=== PATIENT | female | born 1950 | race Caucasian/White ===

== ENCOUNTER → 2023-05-20 10:58 | Outpatient (REF) | payer MEDICARE, OTHER, SELFPAY | LOC: HWRAD 10:58 | PROVIDERS: ATTENDING PHYSICIAN Internal Medicine | DX: M81.0 Age-related osteoporosis without current pathological fracture (principal) | CPT/HCPCS: 77080 ==

== ENCOUNTER → 2023-07-19 11:32 | Outpatient (REF) | payer MEDICARE, OTHER, SELFPAY | LOC: HWRAD 11:32 | PROVIDERS: ATTENDING PHYSICIAN Radiology Radiation Oncology; FAMILY PHYSICIAN Internal Medicine | DX: C34.31 Malignant neoplasm of lower lobe, right bronchus or lung (principal) | CPT/HCPCS: 71250 ==

== ENCOUNTER → 2024-01-03 09:00 | Outpatient (REF) | payer MEDICARE, OTHER, SELFPAY | LOC: HWWDC 09:00 | PROVIDERS: ATTENDING PHYSICIAN Internal Medicine | DX: Z12.39 Encounter for other screening for malignant neoplasm of breast (principal) | CPT/HCPCS: 77063; 77067 ==

== ENCOUNTER → 2024-01-31 10:29 | Outpatient (REF) | payer MEDICARE, OTHER, SELFPAY | LOC: HWRAD 10:29 | PROVIDERS: ATTENDING PHYSICIAN Radiology Radiation Oncology; FAMILY PHYSICIAN Internal Medicine | DX: C34.11 Malignant neoplasm of upper lobe, right bronchus or lung (principal); C34.31 Malignant neoplasm of lower lobe, right bronchus or lung | CPT/HCPCS: 71250 ==

== ENCOUNTER → 2024-05-17 09:27 | Outpatient (REF) | payer MEDICARE, OTHER, SELFPAY | LOC: HWRAD 09:27 | PROVIDERS: ATTENDING PHYSICIAN Internal Medicine | DX: M89.8X1 Other specified disorders of bone, shoulder (principal); R07.89 Other chest pain; M54.9 Dorsalgia, unspecified; R68.89 Other general symptoms and signs; M79.672 Pain in left foot; Z85.118 Personal history of other malignant neoplasm of bronchus and lung | CPT/HCPCS: 71101; 72050; 72072; 73010 ==

== ENCOUNTER → 2024-06-25 09:46 | Outpatient (REF) | payer MEDICARE, OTHER, SELFPAY | LOC: MRI 3T 09:46 | PROVIDERS: ATTENDING PHYSICIAN Internal Medicine | DX: M25.511 Pain in right shoulder (principal) | CPT/HCPCS: 73221 ==

== ENCOUNTER → 2024-07-05 09:11 | Outpatient (REF) | payer MEDICARE, OTHER, SELFPAY | LOC: RAD 09:11 | PROVIDERS: ATTENDING PHYSICIAN Internal Medicine; FAMILY PHYSICIAN Radiology Radiation Oncology | DX: S22.31XA Fracture of one rib, right side, initial encounter for closed fracture (principal); Z85.118 Personal history of other malignant neoplasm of bronchus and lung | CPT/HCPCS: 78306; A9503 ==

== ENCOUNTER → 2024-07-24 10:59 | Outpatient (REF) | payer MEDICARE, OTHER, SELFPAY | LOC: HWRAD 10:59 | PROVIDERS: ATTENDING PHYSICIAN Radiology Radiation Oncology; FAMILY PHYSICIAN Internal Medicine; REFERRING PHYSICIAN Orthopaedic Surgery | DX: C34.31 Malignant neoplasm of lower lobe, right bronchus or lung (principal); C34.11 Malignant neoplasm of upper lobe, right bronchus or lung | CPT/HCPCS: 71250 ==

== ENCOUNTER → 2024-09-07 11:29 | Outpatient (REF) | payer MEDICARE, OTHER, SELFPAY ==
[2024-09-07 16:33] LABS: Urine Albumin Negative (Neg - Trace); Urine Bilirubin Negative (Negative); Urine Character Clear (Clear); Urine Color Yellow; Urine Glucose Negative (Negative); Urine Ketone Negative (Negative); Urine Leukocyte Negative (Negative); Urine Nitrite Negative (Negative); Urine Occult Blood 3+ (Negative); Urine Specific Gravity 1.005 (<1.030); Urine Urobilinogen Negative (Neg - 1+)
[2024-09-07 16:37] LABS: % Basophils 0.8 % (0-2); % Eosinophils 1.4 % (0-6); % Immature Granulocytes 0.8 % (0-0.5); % Lymphocytes 28.7 % (20.5-51.1); % Monocytes 8.8 % (1.7-9.3); % Neutrophils 59.5 % (42.2-75.2); Absolute Eosinophils 0.1 10^3/uL (0-0.7); Absolute Lymphocytes 1.4 10^3/uL (1.2-3.4); Absolute Monocytes 0.4 10^3/uL (0.1-0.6); Hematocrit 39.7 % (37.0-47.0); Hemoglobin 13.3 g/dL (12.0-16.0); Mean Corp Hgb Conc. 33.5 g/dL (33.0-37.0); Mean Corpuscular Volume 92.5 fL (81.0-99.0); Mean Platelet Volume 11.1 fL (7.4-10.4); Nucleated Red Blood Cells % 0 %; Platelet Count 203 10^3/uL (130-400); Red Blood Cell Count 4.29 10^6/uL (4.20-5.40); Red Cell Dist. Width 13.7 % (11.5-14.5)
[2024-09-07 16:39] LABS: ALT (SGPT) 23 U/L (0-35); AST (SGOT) 30 U/L (14-36); Albumin 4.6 g/dl (3.5-5.0); Alkaline Phosphatase 39 U/L (38-126); Blood Urea Nitrogen 14 mg/dl (7-17); Calcium 10.1 mg/dl (8.4-10.2); Carbon Dioxide 28 mmol/L (22-30); Chloride 106 mmol/L (98-107); Glucose 102 mg/dl (70-99); Potassium 4.1 mmol/L (3.5-5.1); Sodium 140 mmol/L (135-145); Total Bilirubin 0.4 mg/dl (0.2-1.3); Total Protein 7.2 g/dl (6.3-8.2); eGFR > 60.00
[2024-09-07 16:43] LABS: Urine Bacteria Few (Negative); Urine White Cell 0-2 /HPF (0-5)
[2024-09-07 17:10] LABS: TSH Reflex To Free T4 1.19 uIU/ml (0.47-4.68)
== END ==
LOC: HWLAB 11:29
PROVIDERS: ATTENDING PHYSICIAN Nurse Practitioner Adult Health; FAMILY PHYSICIAN Internal Medicine; OTHER PHYSICIAN Physician Assistant Medical; REFERRING PHYSICIAN Orthopaedic Surgery
DX: I10 Essential (primary) hypertension (principal); R55 Syncope and collapse; S22.31XG Fracture of one rib, right side, subsequent encounter for fracture with delayed healing; R35.0 Frequency of micturition
CPT/HCPCS: 36415; 71101; 80053; 81003; 81015; 84443; 85025; 87086

== ENCOUNTER → 2024-09-14 11:34 | Outpatient (REF) | payer MEDICARE, OTHER, SELFPAY ==
[2024-09-14 15:45] LABS: Urine Albumin Negative (Neg - Trace); Urine Bilirubin Negative (Negative); Urine Character Clear (Clear); Urine Color Yellow; Urine Glucose Negative (Negative); Urine Ketone Negative (Negative); Urine Leukocyte Negative (Negative); Urine Nitrite Negative (Negative); Urine Occult Blood 3+ (Negative); Urine Urobilinogen Negative (Neg - 1+)
[2024-09-14 16:00] LABS: Urine Squamous Cell 0-2 /LPF (Few)
[2024-09-14 16:01] LABS: Urine Bacteria Few (Negative); Urine White Cell 0-2 /HPF (0-5)
== END ==
LOC: HWLAB 11:34
PROVIDERS: ATTENDING PHYSICIAN Nurse Practitioner Adult Health
DX: R31.29 Other microscopic hematuria (principal)
CPT/HCPCS: 81003; 81015

== ENCOUNTER → 2024-09-20 13:37 | Outpatient (REF) | payer MEDICARE, OTHER, SELFPAY | LOC: RAD 13:37 | PROVIDERS: ATTENDING PHYSICIAN Nurse Practitioner Adult Health; FAMILY PHYSICIAN Internal Medicine | DX: R31.29 Other microscopic hematuria (principal); Z87.891 Personal history of nicotine dependence; C34.31 Malignant neoplasm of lower lobe, right bronchus or lung | CPT/HCPCS: 74178; Q9967 ==

== ENCOUNTER → 2024-11-23 12:53 | Outpatient (REF) | payer MEDICARE, OTHER, SELFPAY | LOC: CLAB 12:53 | PROVIDERS: ATTENDING PHYSICIAN Urology | DX: R31.29 Other microscopic hematuria (principal) | CPT/HCPCS: 88112 ==

== ENCOUNTER → 2025-01-22 10:59 | Outpatient (REF) | payer MEDICARE, OTHER, SELFPAY | LOC: HWRAD 10:59 | PROVIDERS: ATTENDING PHYSICIAN Radiology Radiation Oncology; FAMILY PHYSICIAN Internal Medicine | DX: C34.31 Malignant neoplasm of lower lobe, right bronchus or lung (principal); C34.11 Malignant neoplasm of upper lobe, right bronchus or lung | CPT/HCPCS: 71250 ==

== ENCOUNTER → 2025-01-30 11:05 | Outpatient (REF) | payer MEDICARE, OTHER, SELFPAY | LOC: HWRAD 11:05 | PROVIDERS: ATTENDING PHYSICIAN Internal Medicine | DX: Z87.81 Personal history of (healed) traumatic fracture (principal) | CPT/HCPCS: 71100 ==

== ENCOUNTER → 2025-01-31 10:09 | Outpatient (REF) | payer MEDICARE, OTHER, SELFPAY ==
[2025-01-31 12:37] LABS: Blood Urea Nitrogen 15 mg/dl (7-17)
== END ==
LOC: HWLAB 10:09
PROVIDERS: ATTENDING PHYSICIAN Internal Medicine
DX: Z01.812 Encounter for preprocedural laboratory examination (principal)
CPT/HCPCS: 36415; 82565; 84520

== ENCOUNTER → 2025-02-07 15:45 | Outpatient (REF) | payer MEDICARE, OTHER, SELFPAY | LOC: RAD 15:45 | PROVIDERS: ATTENDING PHYSICIAN Internal Medicine | DX: C34.31 Malignant neoplasm of lower lobe, right bronchus or lung (principal); C34.11 Malignant neoplasm of upper lobe, right bronchus or lung; R07.9 Chest pain, unspecified; Z87.81 Personal history of (healed) traumatic fracture | CPT/HCPCS: 71260; Q9967 ==

== ENCOUNTER → 2025-02-27 10:06 | Outpatient (REF) | payer MEDICARE, OTHER, SELFPAY | LOC: HWWDC 10:06 | PROVIDERS: ATTENDING PHYSICIAN Internal Medicine | DX: Z12.31 Encounter for screening mammogram for malignant neoplasm of breast (principal) | CPT/HCPCS: 77063; 77067 ==